=== PATIENT | female | born 1950 | race Native Hawaiian/Other Pacific Islander ===

== ENCOUNTER 2016-05-04 12:56 | Outpatient (CLI) | payer OTHER | END 2016-05-04 13:56 | disposition home or self-care (01) | LOC: CT 12:56 | DX: R42 Dizziness and giddiness (principal); T78.40XA Allergy, unspecified, initial encounter ==

== ENCOUNTER 2016-05-14 07:33 | Outpatient (CLI) | payer OTHER | END 2016-05-14 22:07 | disposition home or self-care (01) | LOC: MRI 07:33 | DX: R51 Headache (principal); R25.1 Tremor, unspecified; R41.3 Other amnesia; R55 Syncope and collapse ==

== ENCOUNTER 2016-05-18 07:35 | Outpatient (CLI) | payer OTHER | END 2016-05-18 20:46 | disposition home or self-care (01) | LOC: CT 07:35 | DX: R42 Dizziness and giddiness (principal); I72.9 Aneurysm of unspecified site | CPT/HCPCS: 36415; 82565; 84520; Q9963 ==

== ENCOUNTER 2016-05-21 07:30 | Outpatient (CLI) | payer OTHER | END 2016-05-21 22:54 | disposition home or self-care (01) | LOC: MRI 07:30 | DX: H53.2 Diplopia (principal); H55.01 Congenital nystagmus; I67.1 Cerebral aneurysm, nonruptured; G20 Parkinson's disease | CPT/HCPCS: A9576 ==

== ENCOUNTER 2016-07-31 07:50 | Outpatient (CLI) | payer OTHER | END 2016-07-31 08:50 | disposition home or self-care (01) | LOC: LABW 07:50 | DX: G25.0 Essential tremor (principal); I10 Essential (primary) hypertension; I67.1 Cerebral aneurysm, nonruptured; H53.2 Diplopia | CPT/HCPCS: 36415; 83519; 86255 ==

== ENCOUNTER 2019-04-08 08:46 | Day surgery (SDC) | payer OTHER ==
[2019-04-08 09:57] LABS: POTASSIUM 3.4 mmol/L (3.6-5.2)
[2019-04-08 10:35] LABS: PLATELET COUNT 257 K/uL (152-353)
== END 2019-04-08 09:12 | disposition home or self-care (01) ==
LOC: OR 08:46
PROVIDERS: Internal Medicine Gastroenterology
PROC: 0DBP8ZZ Excision of Rectum, Via Natural or Artificial Opening Endoscopic (ICD-10-PCS; principal; 2019-04-08)
PROC: 0DBN8ZZ Excision of Sigmoid Colon, Via Natural or Artificial Opening Endoscopic (ICD-10-PCS; 2019-04-08)
DX: K63.5 Polyp of colon (principal); K62.1 Rectal polyp; K57.30 Diverticulosis of large intestine without perforation or abscess without bleeding; K64.8 Other hemorrhoids; Z12.11 Encounter for screening for malignant neoplasm of colon
CPT/HCPCS: 80053; 85027

== ENCOUNTER 2021-11-16 09:57 | Outpatient (CLI) | payer OTHER | END 2021-11-16 19:04 | disposition home or self-care (01) | LOC: US 09:57 | PROVIDERS: ATTEND Nurse Practitioner Family | DX: I10 Essential (primary) hypertension (principal); N19 Unspecified kidney failure ==

== ENCOUNTER 2021-12-11 07:59 | Outpatient (CLI) | payer OTHER | END 2021-12-11 19:29 | disposition home or self-care (01) | LOC: LABW 07:59 | DX: H53.2 Diplopia (principal) | CPT/HCPCS: 36415; 83519; 84436; 84443; 84479 ==

== ENCOUNTER 2022-01-12 09:24 | Outpatient (CLI) | payer OTHER ==
[2022-01-12 10:28] LABS: POTASSIUM 3.6 mmol/L (3.6-5.2)
[2022-01-12 10:54] LABS: PLATELET COUNT 274 K/uL (152-353)
== END 2022-01-12 22:08 | disposition home or self-care (01) ==
LOC: LABW 09:24
PROVIDERS: ATTEND Internal Medicine
DX: I12.9 Hypertensive chronic kidney disease with stage 1 through stage 4 chronic kidney disease, or unspecified chronic kidney disease (principal); N18.31 Chronic kidney disease, stage 3a
CPT/HCPCS: 36415; 80048; 82040; 83883; 84100; 84550; 85027; 86038

== ENCOUNTER 2022-03-07 18:56 | Emergency (ER) | payer OTHER ==
[~2022-03-07] VITALS: Ht 167.6 cm; Wt 63.5 kg
[2022-03-07 18:59] VITALS: BP 187/74; TEMP 98.5
== END 2022-03-07 20:45 | disposition home or self-care (01) ==
LOC: ED 18:56
PROC: 0HQ0XZZ Repair Scalp Skin, External Approach (ICD-10-PCS; principal; 2022-03-07)
DX: S01.01XA Laceration without foreign body of scalp, initial encounter (principal); J32.0 Chronic maxillary sinusitis; W01.0XXA Fall on same level from slipping, tripping and stumbling without subsequent striking against object, initial encounter; Y92.098 Other place in other non-institutional residence as the place of occurrence of the external cause
CPT/HCPCS: 90471; 90715; 99283

== ENCOUNTER 2022-03-15 15:58 | Emergency (ER) | payer OTHER ==
[~2022-03-15] VITALS: Ht 167.6 cm; Wt 63.5 kg
[2022-03-15 16:11] VITALS: TEMP 99.1
[2022-03-15 17:42] VITALS: BP 115/42
== END 2022-03-15 17:42 | disposition home or self-care (01) ==
LOC: ED 15:58
DX: S92.515A Nondisplaced fracture of proximal phalanx of left lesser toe(s), initial encounter for closed fracture (principal); W01.0XXA Fall on same level from slipping, tripping and stumbling without subsequent striking against object, initial encounter; Y92.89 Other specified places as the place of occurrence of the external cause
CPT/HCPCS: 96372; 99282; J1885

== ENCOUNTER 2022-03-17 10:18 | Emergency (ER) | payer OTHER ==
[~2022-03-17] VITALS: Ht 167.6 cm; Wt 63.5 kg
[2022-03-17 10:24] VITALS: BP 152/67; TEMP 98.2
== END 2022-03-17 10:41 | disposition home or self-care (01) ==
LOC: ED 10:18
DX: S01.01XD Laceration without foreign body of scalp, subsequent encounter (principal); Z48.02 Encounter for removal of sutures; X58.XXXD Exposure to other specified factors, subsequent encounter; Y92.89 Other specified places as the place of occurrence of the external cause

== ENCOUNTER → 2022-03-23 | Outpatient (CLI) | payer OTHER ==
[2022-03-23 10:27] LABS: POTASSIUM 4.2 mmol/L (3.6-5.2)
[2022-03-23 11:19] LABS: PLATELET COUNT 314 K/uL (152-353)
== END ==
LOC: LABW 09:13
PROVIDERS: ATTEND Internal Medicine
DX: I12.9 Hypertensive chronic kidney disease with stage 1 through stage 4 chronic kidney disease, or unspecified chronic kidney disease (principal); N18.31 Chronic kidney disease, stage 3a
CPT/HCPCS: 36415; 80069; 82570; 84156; 85027

== ENCOUNTER 2022-04-03 13:58 | Emergency (ER) | payer OTHER ==
[~2022-04-03] VITALS: Ht 167.6 cm; Wt 63.5 kg
[2022-04-03 14:02] VITALS: BP 135/45; TEMP 98.7
== END 2022-04-03 18:15 | disposition home or self-care (01) ==
LOC: ED 13:58
DX: S22.42XA Multiple fractures of ribs, left side, initial encounter for closed fracture (principal); G20 Parkinson's disease; W01.190A Fall on same level from slipping, tripping and stumbling with subsequent striking against furniture, initial encounter; Y92.098 Other place in other non-institutional residence as the place of occurrence of the external cause
CPT/HCPCS: 96372; 99283; J1885; J2175; J2405

== ENCOUNTER 2022-06-29 09:57 | Outpatient (CLI) | payer OTHER ==
[2022-06-29 10:41] LABS: PLATELET COUNT 262 K/uL (152-353)
[2022-06-29 10:52] LABS: POTASSIUM 3.7 mmol/L (3.6-5.2)
== END 2022-06-29 22:51 | disposition home or self-care (01) ==
LOC: LABW 09:57
PROVIDERS: ATTEND Internal Medicine
DX: I12.9 Hypertensive chronic kidney disease with stage 1 through stage 4 chronic kidney disease, or unspecified chronic kidney disease (principal); N18.31 Chronic kidney disease, stage 3a
CPT/HCPCS: 36415; 80048; 81002; 82040; 84100; 84165; 84550; 85027

== ENCOUNTER 2022-10-11 09:49 | Outpatient (CLI) | payer OTHER ==
[2022-10-11 10:01] LABS: PLATELET COUNT 262 K/uL (152-353)
[2022-10-11 11:02] LABS: POTASSIUM 3.6 mmol/L (3.6-5.2)
== END 2022-10-11 19:43 | disposition home or self-care (01) ==
LOC: LABW 09:49
PROVIDERS: ATTEND Internal Medicine
DX: I12.9 Hypertensive chronic kidney disease with stage 1 through stage 4 chronic kidney disease, or unspecified chronic kidney disease (principal); N18.31 Chronic kidney disease, stage 3a; E78.49 Other hyperlipidemia
CPT/HCPCS: 36415; 80048; 80061; 82040; 84100; 84550; 85027

== ENCOUNTER 2022-12-24 15:40 | Outpatient (CLI) | payer OTHER | END 2022-12-24 21:25 | disposition home or self-care (01) | LOC: RAD 15:40 | PROVIDERS: ATTEND Nurse Practitioner Family | DX: R06.2 Wheezing (principal) ==

== ENCOUNTER 2023-01-09 10:27 | Outpatient (CLI) | payer OTHER ==
[2023-01-09 11:12] LABS: POTASSIUM 3.8 mmol/L (3.6-5.2)
[2023-01-09 13:44] LABS: PLATELET COUNT 363 K/uL (152-353)
== END 2023-01-09 19:17 | disposition home or self-care (01) ==
LOC: LABW 10:27
PROVIDERS: ATTEND Internal Medicine
DX: I12.9 Hypertensive chronic kidney disease with stage 1 through stage 4 chronic kidney disease, or unspecified chronic kidney disease (principal); N18.9 Chronic kidney disease, unspecified; E78.2 Mixed hyperlipidemia
CPT/HCPCS: 36415; 80048; 80061; 82040; 84100; 84550; 85027

== ENCOUNTER 2023-01-09 10:40 | Outpatient (CLI) | payer OTHER | END 2023-01-09 19:17 | disposition home or self-care (01) | LOC: RAD 10:40 | PROVIDERS: ATTEND Nurse Practitioner Family | DX: M25.551 Pain in right hip (principal); W19.XXXA Unspecified fall, initial encounter; I12.9 Hypertensive chronic kidney disease with stage 1 through stage 4 chronic kidney disease, or unspecified chronic kidney disease; N18.9 Chronic kidney disease, unspecified; E78.2 Mixed hyperlipidemia | CPT/HCPCS: 36415; 80048; 80061; 82040; 84100; 84550; 85027 ==

== ENCOUNTER 2023-04-07 14:16 | Inpatient (IN) | payer OTHER ==
[~2023-04-07] VITALS: Ht 167.6 cm; Wt 57.6 kg
[2023-04-07] VITALS (14 sets, daily range): BP systolic 130–167; BP diastolic 54–71; TEMP 99
[2023-04-07 14:31] LABS: PLATELET COUNT 251 K/uL (152-353)
[2023-04-07 14:46] LABS: POTASSIUM 3.9 mmol/L (3.6-5.2); SODIUM 133 mmol/L (136-145)
[2023-04-08] VITALS (8 sets, daily range): BP systolic 119–150; BP diastolic 51–70; TEMP 98.2–100.1; Ht 167.6 cm; Wt 57.6 kg
[2023-04-08 05:25] LABS: PLATELET COUNT 219 K/uL (152-353)
[2023-04-08 05:41] LABS: POTASSIUM 3.3 mmol/L (3.6-5.2); SODIUM 140 mmol/L (136-145)
[2023-04-08] MEDS ORDERED: CARB25TA29 PO (09:38)
[2023-04-08] MEDS ORDERED: AMLODIPINE BESYLATE PO (09:39)
[2023-04-08] MEDS ORDERED: BENZ1TAB43 PO (09:39)
[2023-04-08] MEDS ORDERED: LEVO0.0529 PO (09:39)
[2023-04-08] MEDS ORDERED: COLESTID1 GM PO (09:40)
[2023-04-09 03:54] VITALS: BP 135/52; TEMP 98.9
[2023-04-09 05:06] LABS: PLATELET COUNT 281 K/uL (152-353)
[2023-04-09 05:28] LABS: POTASSIUM 3.4 mmol/L (3.6-5.2)
[2023-04-09 08:00] VITALS: BP 151/67; TEMP 99.3
[2023-04-09 12:00] VITALS: BP 161/68; TEMP 99.2
[2023-04-09 16:00] VITALS: BP 140/66; TEMP 99.1
[2023-04-09 20:00] VITALS: BP 151/69; TEMP 100
[2023-04-10] VITALS: BP 150/64; TEMP 99.3
[2023-04-10 04:00] VITALS: BP 146/66; TEMP 99.5
[2023-04-10 05:04] LABS: POTASSIUM 3.2 mmol/L (3.6-5.2)
[2023-04-10 05:09] LABS: PLATELET COUNT 303 K/uL (152-353)
[2023-04-10 12:00] VITALS: BP 157/65; TEMP 98.6
[2023-04-10 16:00] VITALS: BP 99/54; TEMP 97.9
[2023-04-10 19:30] VITALS: BP 118/80; TEMP 99.4
[2023-04-10 23:32] VITALS: BP 149/63; TEMP 100.1
[2023-04-11 03:35] LABS: PLATELET COUNT 320 K/uL (152-353)
[2023-04-11 03:47] VITALS: BP 155/62; TEMP 100
[2023-04-11 08:02] VITALS: BP 139/51; TEMP 99.8
[2023-04-11 11:44] VITALS: BP 143/56; TEMP 98.7
== END 2023-04-11 12:38 | disposition short-term general hospital (02) | DRG 189 ==
LOC: ED 14:16 → MED/SURG 21:00
PROVIDERS: Family Medicine; Internal Medicine; ADMIT Internal Medicine Endocrinology, Diabetes & Metabolism; ATTEND Internal Medicine Endocrinology, Diabetes & Metabolism
DX: J96.01 Acute respiratory failure with hypoxia (principal); J18.9 Pneumonia, unspecified organism; E87.1 Hypo-osmolality and hyponatremia; E87.6 Hypokalemia; I10 Essential (primary) hypertension; E78.49 Other hyperlipidemia; E03.8 Other specified hypothyroidism; G20.A1 Parkinson's disease without dyskinesia, without mention of fluctuations; R05.9 Cough, unspecified; F17.210 Nicotine dependence, cigarettes, uncomplicated; S16.1XXD Strain of muscle, fascia and tendon at neck level, subsequent encounter; W19.XXXD Unspecified fall, subsequent encounter; D72.828 Other elevated white blood cell count
CPT/HCPCS: 36415; 36600; 80048; 80053; 80202; 82805; 83880; 84484; 85027; 85379; 87502; 87635; 93005; 94664; 94667; 94668; 94760; 96365; 96375; 99285; J0456; J0515; J0696; J1650; J1940; J2920; J2930; J3370; U0003